=== PATIENT | female | born 1925 | race Caucasian/White ===

== ENCOUNTER 2016-12-12 08:06 | Outpatient (CLI) | payer MEDICARE, OTHER | END 2016-12-12 08:07 | disposition home or self-care (01) | DX: Z12.31 Encounter for screening mammogram for malignant neoplasm of breast (principal); Z85.3 Personal history of malignant neoplasm of breast ==

== ENCOUNTER 2016-12-12 12:00 | Outpatient (CLI) | payer MEDICARE, OTHER | END 2016-12-12 12:01 | disposition home or self-care (01) | DX: M81.0 Age-related osteoporosis without current pathological fracture (principal); Z78.0 Asymptomatic menopausal state ==

== ENCOUNTER 2016-12-18 | Outpatient (CLI) | payer MEDICARE, OTHER | END 2016-12-18 08:53 | disposition critical access hospital (66) | CPT/HCPCS: A0425; A0429 ==

== ENCOUNTER 2016-12-18 09:22 | Emergency (ER) | payer MEDICARE, OTHER ==
[2016-12-18] MEDS ORDERED: SODIUM CHLORIDE 0.9% 500 ML IV ONE (12:30)
== END 2016-12-18 15:59 | disposition home or self-care (01) ==
DX: E86.0 Dehydration (principal); R53.1 Weakness; S09.90XA Unspecified injury of head, initial encounter; S00.83XA Contusion of other part of head, initial encounter; S69.91XA Unspecified injury of right wrist, hand and finger(s), initial encounter; W01.198A Fall on same level from slipping, tripping and stumbling with subsequent striking against other object, initial encounter; I10 Essential (primary) hypertension; J44.9 Chronic obstructive pulmonary disease, unspecified; Z79.02 Long term (current) use of antithrombotics/antiplatelets; Z79.82 Long term (current) use of aspirin

== ENCOUNTER 2017-02-12 16:48 | Outpatient (CLI) | payer MEDICARE, OTHER ==
[2017-02-12] MEDS ORDERED: IOPAMIDOL-300 100 ML VIAL IVP ONE (20:33)
[2017-02-12] MEDS ORDERED: IOPAMIDOL-300 50 ML VIAL PO ONE (20:33)
== END 2017-02-12 16:49 | disposition home or self-care (01) ==
DX: I50.9 Heart failure, unspecified (principal); R60.9 Edema, unspecified; R06.00 Dyspnea, unspecified; R19.00 Intra-abdominal and pelvic swelling, mass and lump, unspecified site; Z79.899 Other long term (current) drug therapy

== ENCOUNTER 2017-02-12 20:49 | Inpatient (IN) | payer MEDICARE, OTHER ==
[2017-02-12] MEDS ORDERED: LIDOCAINE-MPF 1% 5 ML VIAL ONE (21:23)
[2017-02-12] MEDS ORDERED: SODIUM CHLORIDE FLUSH 0.9% 10 ML SYRINGE IVP PRN (21:53)
[2017-02-12] MEDS ORDERED: ACETAMINOPHEN 325 MG TABLET PO PRN (21:53)
[2017-02-12] MEDS ORDERED: TEMAZEPAM 15 MG CAPSULE PO PRN (21:53)
[2017-02-12] MEDS ORDERED: ONDANSETRON 4 MG/2 ML VIAL IVP PRN (21:53)
[2017-02-12] MEDS ORDERED: HYDROcod/ACETAM 5/325 MG TABLET PO PRN (21:53)
[2017-02-12] MEDS ORDERED: LORazepam 2 MG/ML SYRINGE IVP PRN (22:08)
[2017-02-12] MEDS ORDERED: ATORVASTATIN 10 MG TABLET PO SCH (23:00)
[2017-02-12] MEDS: SODIUM CHLORIDE FLUSH 0.9% 10 ML SYRINGE IVP SCH (23:24)
[2017-02-13] MEDS: SODIUM CHLORIDE FLUSH 0.9% 10 ML SYRINGE IVP SCH ×3 (06:09→20:52)
[2017-02-13] MEDS: METOPROLOL TARTRATE 25 MG TABLET PO SCH ×2 (08:18→20:42)
[2017-02-13] MEDS: LISINOPRIL 5 MG TABLET PO SCH (08:19)
[2017-02-13] MEDS: CLOPIDOGREL 75 MG TABLET PO SCH (08:19)
[2017-02-13] MEDS: POLYETHYLENE GLYCOL 3350 17 GM PACKET PO SCH (08:22)
[2017-02-13] MEDS ORDERED: METOPROLOL TARTRATE 25 MG TABLET PO SCH (09:00)
[2017-02-13] MEDS ORDERED: ENOXAPARIN 40 MG/0.4 ML SYRINGE SUBQ SCH (09:00)
[2017-02-13] MEDS ORDERED: ASPIRIN EC 81 MG TABLET PO SCH (09:00)
[2017-02-13] MEDS: SACCHAROMYCES BOULARDII 250 MG CAPSULE PO SCH ×2 (11:46→17:04)
[2017-02-13] MEDS: ENOXAPARIN 80 MG/0.8 ML SYRINGE SUBQ SCH ×2 (14:36→20:43)
[2017-02-13] MEDS ORDERED: NON FORMULARY MED (Simvastatin [Zocor] 10 MG) PO SCH (21:00)
[2017-02-14] MEDS: SODIUM CHLORIDE FLUSH 0.9% 10 ML SYRINGE IVP SCH ×3 (06:37→21:54)
[2017-02-14] MEDS: SACCHAROMYCES BOULARDII 250 MG CAPSULE PO SCH ×2 (09:44→17:10)
[2017-02-14] MEDS: POLYETHYLENE GLYCOL 3350 17 GM PACKET PO SCH (09:44)
[2017-02-14] MEDS: ENOXAPARIN 80 MG/0.8 ML SYRINGE SUBQ SCH ×2 (09:44→21:18)
[2017-02-14] MEDS: CLOPIDOGREL 75 MG TABLET PO SCH (09:45)
[2017-02-14] MEDS: LISINOPRIL 5 MG TABLET PO SCH (09:45)
[2017-02-14] MEDS: METOPROLOL TARTRATE 25 MG TABLET PO SCH ×2 (09:45→21:18)
[2017-02-14] MEDS: MORPHINE SOL 10 MG/0.5 ML SYRINGE PO PRN ×2 (17:55→19:47)
[2017-02-14] MEDS: SENNA 8.6 MG TABLET PO SCH (21:18)
[2017-02-15] MEDS: MORPHINE SOL 10 MG/0.5 ML SYRINGE PO PRN (00:09)
[2017-02-15] MEDS: SODIUM CHLORIDE FLUSH 0.9% 10 ML SYRINGE IVP SCH ×3 (00:10→21:47)
[2017-02-15] MEDS ORDERED: MORPHINE 10 MG/ML VIAL IVP ONE (08:32)
[2017-02-15] MEDS: MORPHINE 2 MG/ML SYRINGE IVP PRN ×6 (08:39→22:11)
[2017-02-15] MEDS: CLOPIDOGREL 75 MG TABLET PO SCH (09:42)
[2017-02-15] MEDS: ENOXAPARIN 80 MG/0.8 ML SYRINGE SUBQ SCH ×2 (09:43→18:37)
[2017-02-15] MEDS: METOPROLOL TARTRATE 25 MG TABLET PO SCH ×2 (09:43→18:37)
[2017-02-15] MEDS: LISINOPRIL 5 MG TABLET PO SCH (09:43)
[2017-02-15] MEDS: POLYETHYLENE GLYCOL 3350 17 GM PACKET PO SCH (09:43)
[2017-02-15] MEDS: SENNA 8.6 MG TABLET PO SCH ×2 (09:44→18:38)
[2017-02-15] MEDS ORDERED: ATROPINE 1% OPHTH DROPS 2 ML SL ONE (22:24)
[2017-02-15] MEDS ORDERED: LORazepam 2 MG/ML SYRINGE IVP PRN (22:25)
== END 2017-02-16 00:24 | disposition expired | DRG 186 ==
PROC: 0W993ZZ Drainage of Right Pleural Cavity, Percutaneous Approach (ICD-10-PCS; principal; 2017-02-12)
DX: J90 Pleural effusion, not elsewhere classified (principal); Z86.718 Personal history of other venous thrombosis and embolism; I81 Portal vein thrombosis; K55.069 Acute infarction of intestine, part and extent unspecified; C21.0 Malignant neoplasm of anus, unspecified; C79.9 Secondary malignant neoplasm of unspecified site; I82.403 Acute embolism and thrombosis of unspecified deep veins of lower extremity, bilateral; C78.7 Secondary malignant neoplasm of liver and intrahepatic bile duct; C80.0 Disseminated malignant neoplasm, unspecified; C50.919 Malignant neoplasm of unspecified site of unspecified female breast; E78.00 Pure hypercholesterolemia, unspecified; I25.2 Old myocardial infarction; Z86.73 Personal history of transient ischemic attack (TIA), and cerebral infarction without residual deficits; Z79.82 Long term (current) use of aspirin; Z51.5 Encounter for palliative care; Z95.810 Presence of automatic (implantable) cardiac defibrillator; Z92.3 Personal history of irradiation; Z88.0 Allergy status to penicillin; Z90.710 Acquired absence of both cervix and uterus; Z66 Do not resuscitate; D72.829 Elevated white blood cell count, unspecified